=== PATIENT | female | born 1960 ===

== ENCOUNTER 2025-09-02 07:24 | Outpatient (RCR) | payer MEDICARE, OTHER, SELFPAY | END 2025-09-02 23:59 | disposition home or self-care (01) | LOC: RPT 07:24 | PROVIDERS: ATTENDING PHYSICIAN Family Medicine | DX: S06.0X0D Concussion without loss of consciousness, subsequent encounter (principal); M54.2 Cervicalgia; Z73.6 Limitation of activities due to disability; M54.6 Pain in thoracic spine; V49.60XD Unspecified car occupant injured in collision with unspecified motor vehicles in traffic accident, subsequent encounter | CPT/HCPCS: 97010; 97110; 97140; 97162 ==